=== PATIENT | female | born 1980 | race Caucasian/White ===

== ENCOUNTER 2016-09-06 07:03 | Emergency (ER) | payer MEDICAID, OTHER ==
[~2016-09-06] VITALS: Ht 170.2 cm; Wt 72.6 kg
[~2016-09-06 07:03] MED LIST: VICODIN; [UNRECOGNIZED DRUG - REMARK]
[2016-09-06 07:21] VITALS: BP 158/110
--- NOTE | 2016-09-06 07:24 | NUR ---
PT AMBULATED TO BED 5 AT THIS TIME.
--- NOTE | 2016-09-06 07:30 | NUR ---
36F BIB SELF C/O LEFT EYE DISHCARGE X THIS MORNING; SLIGHT REDNESS TO LEFT SCLERA AT THIS TIME; CLEAR DRAINAGE FROM LEFT EYE S/P WASHING EYE W/ WATER THIS MORNING; PT STATES SHE "WOKE UP LIKE THIS AND WASHED OUT HER EYE"; PT DENIES TRAUMA TO LEFT EYE, BLURRED OR LOSS OF VISION AT THIS TIME. PT DENIES PAIN TO LEFT EYE, BUT STATES IT "FEELS WEIRD"; A&OX4, BL LUNG SOUNDS CLEAR, RR EVEN/UNLABORED, SKIN IS WARM/DRY/INTACT AT THIS TIME; PT DENIES N/V/D AT THIS TIME; STEADY GAIT; PT RESTING IN BED W/ HOB ELEVATED AND IN LOWEST POSITION; ER MD NOTIFIED; WILL CONTINUE TO MONITOR.
[2016-09-06 07:48] VITALS: BP 135/93
--- NOTE | 2016-09-06 07:48 | NUR ---
Patient discharged with v/s stable. Written and verbal after care instructions given and explained. Patient alert, oriented and verbalized understanding of instructions. Ambulatory with steady gait. All questions addressed prior to discharge. ID band removed. Patient advised to follow up with PMD. Rx of EQUATE NICOTINE 2MG CHEWING GUM &SULFACETAMIDE SODIUM 10% OPHTHALMIC SOLUTION given. Patient educated on indication of medication including possible reaction and side effects. Opportunity to ask questions provided and answered.
== END 2016-09-06 07:47 | disposition home or self-care (01) ==
LOC: MED 07:03
DX: H10.9 Unspecified conjunctivitis (principal); J40 Bronchitis, not specified as acute or chronic; F17.210 Nicotine dependence, cigarettes, uncomplicated; R03.0 Elevated blood-pressure reading, without diagnosis of hypertension; F10.20 Alcohol dependence, uncomplicated

== ENCOUNTER 2016-10-20 19:25 | Emergency (ER) | payer MEDICAID ==
[~2016-10-20] VITALS: Ht 170.2 cm; Wt 83.9 kg
[2016-10-20 20:04] VITALS: BP 156/95
--- NOTE | 2016-10-20 22:53 | NUR ---
PT TAKEN TO BED 7
--- NOTE | 2016-10-20 22:55 | NUR ---
Came in with c/o left flank pain radiating to her back started last night, with productive cough too.
--- NOTE | 2016-10-20 23:10 | NUR ---
Dr. Barrientos evaluating patient at bedside.
--- NOTE | 2016-10-20 23:19 | NUR ---
Antony farmer in [facility] - 10/20/16 at 2319 by KATARYZNA PT TAKEN TO BED 7
--- NOTE | 2016-10-20 23:19 | NUR ---
PT TAKEN TO XRAY
--- NOTE | 2016-10-20 23:26 | NUR ---
PT RETURN FROM XRAY
[2016-10-21] MEDS ORDERED: cefTRIAXone 1,000 MG in LIDOCAINE 1% ED 2.1 ML IM ONE (00:10)
--- NOTE | 2016-10-21 00:25 | NUR ---
MEDICATED PER ERMDS ORDER, PATIENT TOLERATED WELL.
[2016-10-21 00:37] VITALS: BP 123/82
--- NOTE | 2016-10-21 00:37 | NUR ---
Patient discharged with v/s stable. Written and verbal after care instructions given and explained BY DHRUV GR. Patient alert, oriented and verbalized understanding of instructions. Ambulatory with steady gait. All questions addressed prior to discharge. ID band removed. Patient advised to follow up with PMD. Rx of MEDROL, BIAXIN, CODEINE given. Patient educated on indication of medication including possible reaction and side effects. Opportunity to ask questions provided and answered.
== END 2016-10-21 00:37 | disposition home or self-care (01) ==
LOC: MED 19:25
DX: J18.1 Lobar pneumonia, unspecified organism (principal); F17.210 Nicotine dependence, cigarettes, uncomplicated; Z71.6 Tobacco abuse counseling
CPT/HCPCS: 71020; 81025; 96372; 99284; J0696; J2001

== ENCOUNTER 2016-11-01 07:54 | Emergency (ER) | payer MEDICAID ==
[~2016-11-01] VITALS: Ht 170.2 cm; Wt 81.6 kg
[2016-11-01 07:57] VITALS: BP 123/80
--- NOTE | 2016-11-01 08:05 | NUR ---
PT AMBULATED TO ER BED 06.
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
--- NOTE | 2016-11-01 08:12 | NUR ---
Patient being evaluated by physician at bedside.
[2016-11-01 08:41] VITALS: BP 123/80
--- NOTE | 2016-11-01 08:41 | NUR ---
Patient discharged with v/s stable. Written and verbal after care instructions given and explained. Patient alert, oriented and verbalized understanding of instructions. Ambulatory with steady gait. All questions addressed prior to discharge. ID band removed. Patient advised to follow up with PMD. Rx of ROBAXIN AND MOTRIN given. Patient educated on indication of medication including possible reaction and side effects. Opportunity to ask questions provided and answered.
== END 2016-11-01 08:41 | disposition home or self-care (01) ==
LOC: MED 07:54
DX: S86.211A Strain of muscle(s) and tendon(s) of anterior muscle group at lower leg level, right leg, initial encounter (principal); F17.210 Nicotine dependence, cigarettes, uncomplicated; R03.0 Elevated blood-pressure reading, without diagnosis of hypertension
CPT/HCPCS: 99283

== ENCOUNTER 2017-05-02 14:26 | Emergency (ER) | payer MEDICAID ==
[~2017-05-02] VITALS: Ht 170.2 cm; Wt 83.6 kg
[2017-05-02 14:31] VITALS: BP 145/88
--- NOTE | 2017-05-02 17:09 | NUR ---
CALLED TO A BED, NO ANSWER. LWBS.ERMD MADE AWARE
== END 2017-05-02 17:09 | disposition left against medical advice (07) ==
LOC: MED 14:26
DX: R50.9 Fever, unspecified (principal); Z53.21 Procedure and treatment not carried out due to patient leaving prior to being seen by health care provider

== ENCOUNTER 2018-07-30 13:39 | Emergency (ER) | payer MEDICAID ==
[~2018-07-30] VITALS: Ht 162.6 cm; Wt 72.6 kg
--- NOTE | 2018-07-30 13:48 | NUR ---
PT TO BED 8 VIA WHEELCHAIR
[2018-07-30 13:54] VITALS: BP 145/88
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
[2018-07-30] MEDS ORDERED: KETOROLAC 60 MG/2 ML VIAL IM ONE (14:35)
[2018-07-30] MEDS ORDERED: SULFAMETH/TRIMETH DS 800/160MG 1 TAB PO ONE (14:35)
--- NOTE | 2018-07-30 15:18 | NUR ---
Patient discharged with v/s stable. Written and verbal after care instructions given and explained. Patient alert, oriented and verbalized understanding of instructions. Wheel Chair Assisted with to car. All questions addressed prior to discharge. ID band removed. Patient advised to follow up with PMD. Rx of BACTRIM AND MOTRIN given. Patient educated on indication of medication including possible reaction and side effects. Opportunity to ask questions provided and answered.
[2018-07-30 15:22] VITALS: BP 145/88
== END 2018-07-30 15:18 | disposition home or self-care (01) ==
LOC: MED 13:39
DX: S82.032A Displaced transverse fracture of left patella, initial encounter for closed fracture (principal); W01.0XXA Fall on same level from slipping, tripping and stumbling without subsequent striking against object, initial encounter; Y93.89 Activity, other specified; Y92.89 Other specified places as the place of occurrence of the external cause; Y99.8 Other external cause status
CPT/HCPCS: 29505; 73562; 81025; 96372; 99283; J1885

== ENCOUNTER 2018-08-08 14:36 | Emergency (ER) | payer MEDICAID ==
[~2018-08-08] VITALS: Ht 170.2 cm; Wt 77.1 kg
--- NOTE | 2018-08-08 14:39 | NUR ---
PT AMBULATED TO ER BED 11
[2018-08-08 14:41] VITALS: BP 153/80
--- NOTE | 2018-08-08 14:43 | NUR ---
pt ambulated to bed 11
--- NOTE | 2018-08-08 14:46 | NUR ---
DR. SMITH AT BEDSIDE EVALUATING THE PT.
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
--- NOTE | 2018-08-08 15:05 | NUR ---
WOUND CLEANSED, DRESSING CHANGED. KNEE IMMOBILIZER ON.
--- NOTE | 2018-08-08 15:38 | NUR ---
DR. SMITH MADE AWARE OF PT'S C/O PAIN.
--- NOTE | 2018-08-08 15:39 | NUR ---
ER DOCTOR AT BEDSIDE EVALUATING PT.
[2018-08-08] MEDS ORDERED: traMADol 50 MG TAB PO ONE (15:40)
[2018-08-08] MEDS ORDERED: KETOROLAC 60 MG/2 ML VIAL IM ONE (15:40)
[2018-08-08 16:11] VITALS: BP 129/69
--- NOTE | 2018-08-08 16:11 | NUR ---
DENIES DIZZINESS, NAUSEA. NO VOMITING NOTED. VERBALIZED DECREAING PAIN.
== END 2018-08-08 16:12 | disposition home or self-care (01) ==
LOC: MED 14:36
DX: S82.031D Displaced transverse fracture of right patella, subsequent encounter for closed fracture with routine healing (principal); Z79.899 Other long term (current) drug therapy; Z79.2 Long term (current) use of antibiotics; W01.0XXD Fall on same level from slipping, tripping and stumbling without subsequent striking against object, subsequent encounter
CPT/HCPCS: 29505; 96372; 99283; J1885

== ENCOUNTER 2018-11-29 02:49 | Emergency (ER) | payer MEDICAID ==
[~2018-11-29] VITALS: Ht 172.7 cm; Wt 79.4 kg
[2018-11-29 02:51] VITALS: BP 145/86
--- NOTE | 2018-11-29 02:56 | NUR ---
PROVIDING URINE. PT AMBULATED TO BED 8. ACCOMPANIED BY FAMILY.
[2018-11-29] MEDS ORDERED: KETOROLAC 60 MG/2 ML VIAL IM ONE (03:00)
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
--- NOTE | 2018-11-29 03:27 | NUR ---
Patient discharged with v/s stable. Patient states she feels a lot better, states 0/10 pain at this time. Patient acting appropriatly. Written and verbal after care instructions given and explained. Patient alert, oriented and verbalized understanding of instructions. Ambulatory with steady gait. All questions addressed prior to discharge. ID band removed. Patient advised to follow up with PMD. Rx of Cipro, Motrin, and Wray given. Patient educated on indication of medication including possible reaction and side effects. Opportunity to ask questions provided and answered.
[2018-11-29 03:36] VITALS: BP 141/88
== END 2018-11-29 03:27 | disposition home or self-care (01) ==
LOC: MED 02:49
DX: N12 Tubulo-interstitial nephritis, not specified as acute or chronic (principal); F17.200 Nicotine dependence, unspecified, uncomplicated
CPT/HCPCS: 81002; 81025; 96372; 99283; J1885

== ENCOUNTER 2018-12-14 04:49 | Emergency (ER) | payer MEDICAID ==
[~2018-12-14] VITALS: Ht 170.2 cm; Wt 81.6 kg
--- NOTE | 2018-12-14 04:58 | NUR ---
PT TAKEN TO BED 7
[2018-12-14 05:06] VITALS: BP 113/71
--- NOTE | 2018-12-14 05:15 | NUR ---
38 YO F BIB PRESENTS TO ED C/O 10/10 SHARP LEFT SIDE RIB PAIN SINCE 1600 WELL DIFFICULTY BREATHING. -- PT APPEARS TO BE IN SEVERE PAIN. FACIAL GRIMACING, MOANING, RESTLESSNESS. DIFFICULTY ANSWERING QUESTIONS. -- PT IS PINK, SKIN IS WARM AND DRY. SP02: 97% ON ROOM AIR. PT IS GRUNTING, UNABLE TO TAKE DEEP BREATHS. LUNG SOUNDS DIMINISHED THROUGHOUT. PMH-- DENIES RX-- DENIES PT ADMITS TO DRINKING ALCOHOL LAST NIGHT AND SMOKES MARIJAUNA. DENIES REC DRUG USE.
--- NOTE | 2018-12-14 05:16 | NUR ---
Dr. Che evaluating patient at bedside.
--- NOTE | 2018-12-14 05:18 | NUR ---
XRAY AT BEDSIDE.
[2018-12-14] MEDS ORDERED: IBUPROFEN 800 MG TAB PO ONE (05:20)
--- NOTE | 2018-12-14 05:30 | NUR ---
PT RECEIVED PO MOTRIN 800 MG FOR 10/10 PAIN.
--- NOTE | 2018-12-14 06:10 | NUR ---
PT STATES PAIN DECREASED TO 6/10 AND SHE CAN BREATHE EASIER NOW. PT APPEARS CALM. SKIN PINK, WARM, DRY. BREATHING EVEN, UNLABORED.
[2018-12-14 06:15] VITALS: BP 109/72
--- NOTE | 2018-12-14 06:15 | NUR ---
Patient discharged with v/s stable. Written and verbal after care instructions given and explained. Patient alert, oriented and verbalized understanding of instructions. Ambulatory with steady gait. All questions addressed prior to discharge. ID band removed. Patient advised to alternate between Tylenol and Motrin as needed for pain and to follow up with PMD in 2-3 days. Rx of Motrin 800 mg given. Patient educated on indication of medication including possible reaction and side effects. Opportunity to ask questions provided and answered.
--- NOTE | 2018-12-14 06:58 | NUR ---
CONTACTED PT VIA CELL PHONE TO INFORM OF +PNA SEEN IN CXR, PER . RX FOR AZITHROMYCIN WILL BE LEFT WITH THE [facility] [employer] [employer]LL DISCHARGE PAPERWORK FOR PNA. PT STATES SHE WILL COME BY TO PRODUCT/INDUSTRY CONSULTANT RX AFTER SHE TAKES HER KIDS TO SCHOOL.
== END 2018-12-14 06:15 | disposition home or self-care (01) ==
LOC: MED 04:49
DX: J18.9 Pneumonia, unspecified organism (principal)
CPT/HCPCS: 71045; 99283; Q0092

== ENCOUNTER 2019-01-17 15:35 | Emergency (ER) | payer MEDICAID ==
[~2019-01-17] VITALS: Ht 170.2 cm; Wt 79.4 kg
[2019-01-17 15:40] VITALS: BP 132/100
[2019-01-17] MEDS ORDERED: KETOROLAC 30 MG/ML VIAL IM ONE ×2 (16:05→16:15)
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
[2019-01-17 16:23] VITALS: BP 135/95
--- NOTE | 2019-01-17 16:24 | NUR ---
Patient discharged with v/s stable. Written and verbal after care instructions given and explained. Patient alert, oriented and verbalized understanding of instructions. Ambulatory with steady gait. All questions addressed prior to discharge. ID band removed. Patient advised to follow up with PMD. Rx of Tylenol and Motrin given. Patient educated on indication of medication including possible reaction and side effects. Opportunity to ask questions provided and answered.
== END 2019-01-17 16:24 | disposition home or self-care (01) ==
LOC: MED 15:35
DX: S39.012A Strain of muscle, fascia and tendon of lower back, initial encounter (principal); S09.90XA Unspecified injury of head, initial encounter; R11.2 Nausea with vomiting, unspecified; R03.0 Elevated blood-pressure reading, without diagnosis of hypertension; F17.210 Nicotine dependence, cigarettes, uncomplicated; Z79.899 Other long term (current) drug therapy; V43.52XA Car driver injured in collision with other type car in traffic accident, initial encounter; Y93.89 Activity, other specified; Y92.89 Other specified places as the place of occurrence of the external cause; Y99.8 Other external cause status
CPT/HCPCS: 96372; 99283; J1885